=== PATIENT | male | born 1945 | race Caucasian/White ===

== ENCOUNTER 2016-11-26 19:30 | Emergency (ER) | payer MEDICARE, BC ==
[2016-11-26 20:22] LABS: CHLORIDE,CL 98 mmol/L (101-111); SODIUM,NA 135 mmol/L (135-145)
[2016-11-26 20:46] VITALS: BP 131/77
--- NOTE | 2016-11-26 22:04 | EDM.PDOC ---
ED HPI GENERAL MEDICAL PROBLEM - General Chief Complaint: Fever Stated Complaint: SHOULDER SURGERY TUESDAY,FEVER [id number] Time Seen by Provider: 11/26/16 19:40 Source of Information: Reports: Patient History Limitations: Reports: No Limitations - History of Present Illness INITIAL COMMENTS - FREE TEXT/NARRATIVE: c/o fever since Tuesday,Right shoulder surgery on Tuesday with bicep muscle repair, Tonight Discomfort to thumb that is new and increase swelling to upper arm. 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 Right Shoulder Pain Score (Numeric/FACES): 1 - Related Data Allergies Allergy/AdvReac Type Severity Reaction Status Date / Time morphine Allergy Nausea Verified 11/26/16 19:56 Sulfa (Sulfonamide Allergy Cough Verified 11/26/16 19:56 Antibiotics) Home Meds: Home Meds Allopurinol [Zyloprim] 100 mg PO DAILY 11/26/16 [History] Docusate Sodium [Stool Softener] 50 mg PO DAILY 11/26/16 [History] Famotidine [Pepcid AC] 10 mg PO DAILY 11/26/16 [History] Hydrocodone/Acetaminophen [Hydrocodon-Acetaminophn 10-325] 50 mg PO BID [History] Metoprolol Succinate 100 mg PO DAILY 11/26/16 [History] Tamsulosin HCl [Tamsulosin HCl] 0.4 mg PO DAILY 11/26/16 [History] Past Medical History HEENT History: Reports: Cataract Respiratory History: Reports: Intubation, Previous Gastrointestinal History: Reports: GERD Musculoskeletal History: Reports: Arthritis - Past Surgical History HEENT Surgical History: Reports: Cataract Surgery GI Surgical History: Reports: Colonoscopy Musculoskeletal Surgical History: Reports: Shoulder Surgery Other Musculoskeletal Surgeries/Procedures:: Recent shoulder replacement. Social & Family History - Family History Family Medical History: Noncontributory - Tobacco Use Smoking Status *Q: Former Smoker Years of Tobacco use: 20 Packs/Tins Daily: 2 Used Tobacco, but Quit: Yes Month Tobacco Last Used: July - Caffeine Use Caffeine Use: Reports: Coffee - Recreational Drug Use Recreational Drug Use: No ED ROS GENERAL - Review of Systems Review Of Systems: See Below Constitutional: Reports: Fever, Malaise HEENT: Reports: No Symptoms Respiratory: Reports: No Symptoms Cardiovascular: Reports: No Symptoms GI/Abdominal: Reports: No Symptoms Musculoskeletal: Reports: Joint Pain (right shoulder) ED EXAM, GENERAL - Physical Exam Exam: See Below Exam Limited By: No Limitations General Appearance: Alert, Anxious, Mild Distress Eye Exam: Bilateral Eye: EOMI Ears: Normal External Exam Nose: Normal Inspection Throat/Mouth: Normal Inspection Head: Atraumatic, Normocephalic Neck: Normal Inspection Respiratory/Chest: No Respiratory Distress, Lungs Clear, Normal Breath Sounds Cardiovascular: Normal Peripheral Pulses, Regular Rate, Rhythm, No Edema GI/Abdominal: Normal Bowel Sounds, Soft Back Exam: Normal Inspection Extremities: Other (large shoulder immobilizer to riight upper extremity, distal pulses present extremity warm, good capillary refill. Bruising and mild dependent erythem to right upper inner arm, Dressing intact dry. ). No: Normal Inspection, Normal Range of Motion Psychiatric: Normal Affect, Normal Mood Skin Exam: Warm, Dry, Intact, Erythema (right upper mid posterior arm.) Course - Vital Signs Last Recorded V/S: Last Vital Signs Temp 99.2 F 11/26/16 19:40 Pulse 75 11/26/16 20:45 Resp 18 11/26/16 20:45 BP 131/77 11/26/16 20:45 Pulse Ox 91 L 11/26/16 20:45 - Orders/Labs/Meds Labs: Laboratory Tests 11/26/16 11/26/16 11/26/16 Range/Units 19:53 19:55 19:55 WBC 11.5 H (5.0-10.0) 10^3/uL RBC 3.82 L (4.6-6.2) 10^6/uL Hgb 12.1 L (14.0-18.0) g/dL Hct 35.6 L (40.0-54.0) % MCV 93.2 (80-100) fL MCH 31.7 (27.0-34.0) pg MCHC 34.0 (33.0-35.0) g/dL Plt Count 287 (150-450) 10^3/uL Neut % (Auto) 71.4 (42.2-75.2) % Lymph % (Auto) 13.6 L (20.5-50.1) % [place] % (Auto) 12.3 H (2-8) % Eos % (Auto) 2.4 (1.0-3.0) % Baso % (Auto) 0.3 (0.0-1.0) % Sodium 135 (135-145) mmol/L Potassium 4.1 (3.6-5.0) mmol/L Chloride 98 L (101-111) mmol/L Carbon Dioxide 28.0 (21.0-31.0) mmol/L Anion Gap 13.1 BUN 9 (7-18) mg/dL Creatinine 0.6 (0.6-1.3) mg/dL Est Cr Clr Drug Dosing 106.08 mL/min Estimated GFR (MDRD) > 60 BUN/Creatinine Ratio 15.00 Glucose 116 H (74-105) mg/dL Lactic Acid (0.5-2.2) mmol/L Uric Acid (2.6-7.2) mg/dL Calcium 9.3 (8.4-10.2) mg/dl Total Bilirubin 0.7 (0.2-1.0) mg/dL AST 28 (10-42) IU/L ALT 24 (10-60) IU/L Alkaline Phosphatase 74 (42-121) IU/L Total Protein 7.1 (6.7-8.2) g/dl Albumin 3.8 (3.2-5.5) g/dl Globulin 3.3 Albumin/Globulin Ratio 1.15 Urine Color Yellow (YELLOW) Urine Appearance Clear (CLEAR) Urine pH 8.5 (5.0-9.0) Ur Specific [place] 1.015 (1.005-1.030) Urine Protein Trace H (NEGATIVE) Urine Glucose (UA) Negative (NEGATIVE) Urine Ketones Negative (NEGATIVE) Urine Occult Blood Trace-lysed H (NEGATIVE) Urine Nitrite Negative (NEGATIVE) Urine Bilirubin Negative (NEGATIVE) Urine Urobilinogen 1.0 (0.2-1.0) mg/dL Ur Leukocyte Esterase Negative (NEGATIVE) Urine RBC 0-5 /HPF Urine WBC 0-5 (0-5/HPF) /HPF Ur Epithelial Cells Rare /HPF Urine Bacteria Rare (0-FEW/HPF) /HPF 11/26/16 11/26/16 Range/Units 19:55 19:55 WBC (5.0-10.0) 10^3/uL RBC (4.6-6.2) 10^6/uL Hgb (14.0-18.0) g/dL Hct (40.0-54.0) % MCV (80-100) fL MCH (27.0-34.0) pg MCHC (33.0-35.0) g/dL Plt Count (150-450) 10^3/uL Neut % (Auto) (42.2-75.2) % Lymph % (Auto) (20.5-50.1) % [place] % (Auto) (2-8) % Eos % (Auto) (1.0-3.0) % Baso % (Auto) (0.0-1.0) % Sodium (135-145) mmol/L Potassium (3.6-5.0) mmol/L Chloride (101-111) mmol/L Carbon Dioxide (21.0-31.0) mmol/L Anion Gap BUN (7-18) mg/dL Creatinine (0.6-1.3) mg/dL Est Cr Clr Drug Dosing mL/min Estimated GFR (MDRD) BUN/Creatinine Ratio Glucose (74-105) mg/dL Lactic Acid 0.8 (0.5-2.2) mmol/L Uric Acid 4.4 (2.6-7.2) mg/dL Calcium (8.4-10.2) mg/dl Total Bilirubin (0.2-1.0) mg/dL AST (10-42) IU/L ALT (10-60) IU/L Alkaline Phosphatase (42-121) IU/L Total Protein (6.7-8.2) g/dl Albumin (3.2-5.5) g/dl Globulin Albumin/Globulin Ratio Urine Color (YELLOW) Urine Appearance (CLEAR) Urine pH (5.0-9.0) Ur Specific [place] (1.005-1.030) Urine Protein (NEGATIVE) Urine Glucose (UA) (NEGATIVE) Urine Ketones (NEGATIVE) Urine Occult Blood (NEGATIVE) Urine Nitrite (NEGATIVE) Urine Bilirubin (NEGATIVE) Urine Urobilinogen (0.2-1.0) mg/dL Ur Leukocyte Esterase (NEGATIVE) Urine RBC /HPF Urine WBC (0-5/HPF) /HPF Ur Epithelial Cells /HPF Urine Bacteria (0-FEW/HPF) /HPF - Radiology Interpretation Free Text/Narrative:: CXR: right lower lobe atelectasis - Re-Assessments/Exams Free Text/Narrative Re-Assessment/Exam: 11/28/16 02:[address] [facility]. States he will review patient record in am and telephone patient after review. No findings noted to require transfer at present time. Information relayed to patient and . Agreeable with plan. Departure - Departure Time of Disposition: 21:52 Disposition: Home, Self-Care 01 Condition: Undetermined Clinical Impression: Status post right shoulder hemiarthroplasty, Swelling of right upper extremity - Discharge Information Referrals: Johnson Newberry MD [Primary Care Provider] - Forms: ED Department Discharge Additional Instructions: Continue pain medications as ordered rest splint as ordered ice to shoulder Dr. Sawyer to call you at home in am.
== END 2016-11-26 22:01 | disposition home or self-care (01) ==
LOC: DL.ED 19:30
DX: M96.840 Postprocedural hematoma of a musculoskeletal structure following a musculoskeletal system procedure (principal); Z96.611 Presence of right artificial shoulder joint; K21.9 Gastro-esophageal reflux disease without esophagitis; M19.90 Unspecified osteoarthritis, unspecified site; J98.11 Atelectasis; Z88.5 Allergy status to narcotic agent; Z88.2 Allergy status to sulfonamides; Z79.899 Other long term (current) drug therapy; Z87.891 Personal history of nicotine dependence
CPT/HCPCS: 36415; 71010; 80053; 81001; 83605; 84550; 85025; 87040; 99283

== ENCOUNTER 2019-11-16 14:00 | Emergency (ER) | payer OTHER, MEDICARE, BC ==
[2019-11-16] MEDS ORDERED: Acetaminophen/HYDROcodone 325-10 MG Tab PO ONE (14:01)
[2019-11-16 16:50] VITALS: BP 143/76; PULSE 60
[2019-11-16] MEDS ORDERED: Iopamidol 612 MG/ML 100 ML Bottle IVPUSH ONE (17:52)
[2019-11-16 18:13] LABS: ANION GAP 9.9 mEq/L (7-13); CHLORIDE,CL 101 mmol/L (98-107); SODIUM,NA 136 mmol/L (136-145)
[2019-11-16] MEDS ORDERED: fentaNYL 100 MCG/2 ML SDV IVPUSH ONE (19:09)
--- NOTE | 2019-11-16 19:10 | CT ---
PROCEDURE INFORMATION: Exam: CT Chest With Contrast Exam date and time: 11/16/2019 6:37 PM Age: 74 years old Clinical indication: Other: RT sided pain; Other: Same; Additional info: Fall, right flank pain TECHNIQUE: Imaging protocol: Computed tomography of the chest with intravenous contrast. Radiation optimization: All CT scans at this facility use at least one of these dose optimization techniques: automated exposure control; mA and/or kV adjustment per patient size (includes targeted exams where dose is matched to clinical indication); or iterative reconstruction. Contrast material: [id number]; Contrast volume: 100 ml; Contrast route: INTRAVENOUS (IV); COMPARISON: No relevant prior studies available. FINDINGS: Lungs: There are minor subpleural atelectatic densities in the dependent portions of the lungs. 6 x 2 mm nodule, pleural based, right lower lobe. Pleural space: No pleural effusion. No pneumothorax. Heart: The heart is not enlarged. Mediastinal space: No mediastinal hematoma.Mild diffuse emphysematous changes are present. Aorta: 4.0 cm ascending aorta.The heart is not enlarged. Lymph nodes: There is no evidence of lymphadenopathy. Bones/joints: No acute bony findings are identified. Status post bilateral shoulder replacement. Soft tissues: No acute soft tissue abnormalities are identified. IMPRESSION: 1. No sign of acute trauma in the chest. 2. 6 x 2 mm nodule, pleural based, right lower lobe. For patients at low risk (minimal or absent history of smoking and of other known risk factors), no routine follow-up is indicated. For patients at high risk (history of smoking or of other known risk factors), consider optional CT Chest at 12 months. (Reference: [facility]) REFERENCES: [facility] [place] et al. Guidelines for Management of Incidental Pulmonary Nodules Detected on CT Images: From the Fleischner Society 2017. Radiology. 2017;284(1):228-243. PROCEDURE INFORMATION: Exam: CT Abdomen And Pelvis With Contrast Exam date and time: 11/16/2019 6:37 PM Age: 74 years old Clinical indication: Other: RT sided pain; Other: Same; Additional info: Fall, right flank pain TECHNIQUE: Imaging protocol: Computed tomography of the abdomen and pelvis with intravenous contrast. Radiation optimization: All CT scans at this facility use at least one of these dose optimization techniques: automated exposure control; mA and/or kV adjustment per patient size (includes targeted exams where dose is matched to clinical indication); or iterative reconstruction. Contrast material: [id number]; Contrast volume: 100 ml; Contrast route: INTRAVENOUS (IV); COMPARISON: No relevant prior studies available. FINDINGS: Mediastinal space: A moderate hiatal hernia is present. Liver: 27 mm cyst in the caudate lobe of the liver. The liver is unremarkable otherwise.The spleen is normal. Gallbladder and bile ducts: The gallbladder is normal. There is no evidence of biliary ductal dilation. Pancreas: There is a 22 x 9 x 15 mm "cyst" in the head of the pancreas. There is a vague hypodense area in the distal head proximal body measuring perhaps 18 mm. Spleen: The spleen is normal. Adrenals: The adrenal glands are normal. Kidneys and ureters: The kidneys are normal. No hydronephrosis. No visible calculi. Stomach and bowel: Non-specific/nonobstructive intestinal gas pattern. Moderate diffuse diverticulosis is present in the colon. There is no evidence of colitis/diverticulitis. Appendix: The appendix is not specifically identified. There is no evidence of fluid or inflammatory stranding at the base of the cecum. Intraperitoneal space: No free air. No free fluid. Vasculature: The vasculature demonstrates diffuse mild atherosclerotic calcification. There is no aortic aneurysm. Lymph nodes: There is no adenopathy. Urinary bladder: There is mild bladder wall thickening consistent with incomplete distension, chronic outflow obstruction, or cystitis. Reproductive: The prostate demonstrates moderate nonspecific enlargement. The seminal vesicles are normal. Bones/joints: Status post kyphoplasty T12, L1, L2.No acute bony findings are identified. Soft tissues: No acute soft tissue abnormalities are identified. IMPRESSION: 1. No sign of acute trauma in the abdomen or pelvis 2. There are 2 suspect pancreatic abnormalities. One is cystic. One is indeterminate. Contrast MR recommended for further evaluation. A potentially significant pancreatic mass lesion is not excluded. 3. Abnormal bladder wall as described. Correlate with urinalysis. The prostate is enlarged 4. Status post multilevel kyphoplasty. 5. Simple cyst in the liver. No follow-up is recommended
--- NOTE | 2019-11-16 19:10 | EDM.PDOC ---
ED HPI GENERAL MEDICAL PROBLEM - General Chief Complaint: Back Pain or Injury Stated Complaint: UNKNOWN Time Seen by Provider: 11/16/19 19:08 Source of Information: Reports: Patient History Limitations: Reports: No Limitations - History of Present Illness INITIAL COMMENTS - FREE TEXT/NARRATIVE: states was fishing and slipped and fell onto left side ~ 12:30pm today. took few hours to get back to shore. did catch alot of fish. denies head/neck injury-pain Left Flank Pain Score (Numeric/FACES): 5 - Related Data Allergies Allergy/AdvReac Type Severity Reaction Status Date / Time morphine Allergy Nausea Verified 11/16/19 16:51 Sulfa (Sulfonamide Allergy Cough Verified 11/16/19 16:51 Antibiotics) Home Meds: Home Meds Allopurinol [Zyloprim] 100 mg PO DAILY 11/26/16 [History] Docusate Sodium [Stool Softener] 50 mg PO DAILY 11/26/16 [History] Famotidine [Pepcid AC] 10 mg PO DAILY 11/26/16 [History] Hydrocodone/Acetaminophen [Hydrocodon-Acetaminophn 10-325] 50 mg PO BID 11/26/16 [History] Metoprolol Succinate 100 mg PO DAILY 11/26/16 [History] Tamsulosin HCl 0.4 mg PO DAILY 11/26/16 [History] Past Medical History HEENT History: Reports: Cataract Cardiovascular History: Reports: None Respiratory History: Reports: Intubation, Previous Gastrointestinal History: Reports: GERD Musculoskeletal History: Reports: Arthritis Neurological History: Reports: None Psychiatric History: Reports: None Endocrine/Metabolic History: Reports: None Hematologic History: Reports: None Immunologic History: Reports: None Oncologic (Cancer) History: Reports: None Dermatologic History: Reports: None - Infectious Disease History Infectious Disease History: Reports: None - Past Surgical History Head Surgeries/Procedures: Reports: None HEENT Surgical History: Reports: Cataract Surgery GI Surgical History: Reports: Colonoscopy Musculoskeletal Surgical History: Reports: Shoulder Surgery Other Musculoskeletal Surgeries/Procedures:: Recent shoulder replacement. Social & Family History - Family History Family Medical History: Noncontributory - Tobacco Use Smoking Status *Q: Never Smoker Second Hand Smoke Exposure: No - Caffeine Use Caffeine Use: Reports: Coffee - Recreational Drug Use Recreational Drug Use: No ED ROS GENERAL - Review of Systems Review Of Systems: Comprehensive ROS is negative, except as noted in HPI. ED EXAM,LOWER BACK PAIN/INJURY - Physical Exam Exam: See Below Exam Limited By: No Limitations General Appearance: Alert, WD/WN, Mild Distress, Moderate Distress, Other (pain) Ears: Hearing Grossly Normal Throat/Mouth: Normal Voice, No Airway Compromise Head: Atraumatic Neck: Non-Tender, Full Range of Motion Respiratory/Chest: No Accessory Muscle Use, Rhonchi, Other (point tender left posterior subcostal 10-11-12) Cardiovascular: Regular Rate, Rhythm GI/Abdominal: Soft, Non-Tender (Male) Exam: Deferred Rectal (Males) Exam: Deferred Back Exam: Decreased Range of Motion, Paraspinal Tenderness, Other (left po sterior rib 10-11-12 region. 1" diam contusion left L1-2-3 region.) Neurological: Alert, Normal Mood/Affect, No Motor/Sensory Deficits, Oriented x 3 Psychiatric: Normal Affect, Normal Mood Skin Exam: Warm, Dry, Normal Color Lymphatic: No Adenopathy Course - Vital Signs Last Recorded V/S: Last Vital Signs Temp 37.1 C 11/16/19 16:49 Pulse 60 11/16/19 16:49 Resp 16 11/16/19 16:49 BP 143/76 H 11/16/19 16:49 Pulse Ox 99 11/16/19 16:49 - Orders/Labs/Meds Orders: Active Orders 24 hr Category Date Time Status EKG Documentation Completion [RC] STAT Care 11/16/19 17:38 Active Labs: Laboratory Tests 11/16/19 11/16/19 11/16/19 Range/Units 17:37 17:46 17:46 WBC 10.7 H (5.0-10.0) 10^3/uL RBC 4.29 L (4.6-6.2) 10^6/uL Hgb 13.8 L D (14.0-18.0) g/dL Hct 39.5 L (40.0-54.0) % MCV 92.1 (80-100) fL MCH 32.2 (27.0-34.0) pg MCHC 34.9 (33.0-35.0) g/dL Plt Count 295 (150-450) 10^3/uL Neut % (Auto) 70.7 (42.2-75.2) % Lymph % (Auto) 19.5 L (20.5-50.1) % [place] % (Auto) 7.1 (2-8) % Eos % (Auto) 2.3 (1.0-3.0) % Baso % (Auto) 0.4 (0.0-1.0) % Sodium 136 (136-145) mmol/L Potassium 3.9 (3.5-5.1) mmol/L Chloride 101 (98-107) mmol/L Carbon Dioxide 29 (21-32) mmol/L Anion Gap 9.9 (7-13) mEq/L BUN 14 (7-18) mg/dL Creatinine 0.87 (0.70-1.30) mg/dL Est Cr Clr Drug Dosing 69.89 mL/min Estimated GFR (MDRD) > 60 BUN/Creatinine Ratio 16.1 (No establ ref range) Glucose 136 H (74-99) mg/dL Calcium 9.2 (8.5-10.1) mg/dL Total Bilirubin 0.5 (0.2-1.0) mg/dL AST 19 (15-37) U/L ALT 26 (16-63) U/L Alkaline Phosphatase 78 (46-116) U/L Creatine Kinase 102 (39-308) U/L Total Protein 7.7 (6.4-8.2) g/dL Albumin 4.1 (3.4-5.0) g/dL Globulin 3.6 Albumin/Globulin Ratio 1.1 Urine Color Yellow (YELLOW) Urine Appearance Slightly cloudy (CLEAR) Urine pH 7.0 (5.0-9.0) Ur Specific [place] 1.015 (1.005-1.030) Urine Protein Negative (NEGATIVE) Urine Glucose (UA) Negative (NEGATIVE) Urine Ketones Negative (NEGATIVE) Urine Occult Blood Trace-lysed H (NEGATIVE) Urine Nitrite Negative (NEGATIVE) Urine Bilirubin Negative (NEGATIVE) Urine Urobilinogen 0.2 (0.2-1.0) mg/dL Ur Leukocyte Esterase Negative (NEGATIVE) Urine RBC 0-5 /HPF Urine WBC 0-5 (0-5/HPF) /HPF Ur Epithelial Cells Rare (NOT SEEN) /HPF Amorphous Sediment Occasional (NOT SEEN) /HPF Urine Bacteria Rare (0-FEW/HPF) /HPF Urine Mucus Rare (NOT SEEN) /LPF Meds: Medications Discontinued Medications Generic Name Dose Route Start Last Admin Trade Name Freq PRN Reason Stop Dose Admin Fentanyl 25 mcg 11/16/19 19:09 11/16/19 19:17 Sublimaze IVPUSH 11/16/19 19:10 25 mcg ONETIME ONE Administration Iopamidol 100 ml 11/16/19 17:52 11/16/19 18:18 Isovue-300 (61%) IVPUSH 11/16/19 17:53 100 ml ONETIME ONE Administration - Re-Assessments/Exams Free Text/Narrative Re-Assessment/Exam: 11/16/19 19:32 results discussed with pt and spouse. Departure - Departure Time of Disposition: 19:32 Disposition: Home, Self-Care 01 Condition: Good Clinical Impression: Contusion of rib on left side Qualifiers: Encounter type: initial encounter Qualified Code(s): S20.212A - Contusion of left front wall of thorax, initial encounter - Discharge Information Instructions: Rib Contusion Forms: ED Department Discharge Additional Instructions: 1) avoid bending lifting straining next 7 days 2) follow up at clinic 3) return if there is any change or concern rx togo; norco 10 bid prn x 2 Sepsis Event Note (ED) - Evaluation Sepsis Screening Result: No Definite Risk - Focused Exam Vital Signs: Vital Signs Temp Pulse Resp BP Pulse Ox 11/16/19 16:49 37.1 C 60 16 143/76 H 99
[2019-11-16] MEDS ORDERED: Acetaminophen/HYDROcodone 325-10 MG Tab ONE (19:46)
== END 2019-11-16 20:00 | disposition home or self-care (01) ==
LOC: DL.ED 14:00
DX: S20.212A Contusion of left front wall of thorax, initial encounter (principal); K21.9 Gastro-esophageal reflux disease without esophagitis; Z88.5 Allergy status to narcotic agent; Z88.2 Allergy status to sulfonamides; Z79.899 Other long term (current) drug therapy; W01.0XXA Fall on same level from slipping, tripping and stumbling without subsequent striking against object, initial encounter
CPT/HCPCS: 36415; 71260; 74177; 80053; 81001; 82550; 85025; 93005; 96374; 99284; A9270; J3010; Q9967